=== PATIENT | female | born 2000 | race American Indian/Alaskan Native ===

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

== ENCOUNTER 2021-04-05 06:07 | Inpatient (IN) | payer OTHER ==
[~2021-04-05 06:07] MED LIST changes: +Docusate Sodium 100 MG Cap PO PRN; +Ibuprofen 800 MG Tab PO PRN; +Ketorolac 30 MG/ML SDV IVPUSH SCH; +Oxytocin/Normal Saline 30 UNIT/500 ML BAG IV SCH
[2021-04-05] MEDS: Lactated Ringers 1,000 ML IV SCH ×5 (06:25→18:24)
[2021-04-05] MEDS ORDERED: Oxytocin/Normal Saline 60 UNIT/1,000 ML BAG ONE (06:39)
[2021-04-05] MEDS ORDERED: Citric Acid/Sodium Citrate Solution 30 ML Cup PO ONE (07:08)
[2021-04-05] MEDS ORDERED: Citric Acid/Sodium Citrate Solution 30 ML Cup ONE (07:09)
[2021-04-05] MEDS ORDERED: Ketorolac 30 MG/ML SDV IVPUSH ONE (08:00)
[2021-04-05] MEDS ORDERED: Dexamethasone 4 MG/ML SDV IV ONE (08:00)
[2021-04-05] MEDS ORDERED: Lactated Ringers 1,000 ML IV ONE (08:00)
[2021-04-05] MEDS ORDERED: Morphine PF 1 MG/ML Amp ITHECAL ONE (08:00)
[2021-04-05] MEDS ORDERED: Ondansetron 4 MG/2 ML SDV IV ONE (08:00)
--- NOTE | 2021-04-05 08:11 | OBOUT ---
DATE: 04/05/2021 TIME: 6:20 to 6:39. REASONS FOR NONSTRESS TEST: 1. Intrauterine , 39 weeks by a 21-6/7-week ultrasound. 2. Previous x2, requests repeat low-transverse . 3. Rubella equivocal. 4. Impaired glucose tolerance. 5. GBS negative. 6. G3, P2-0-0-2. NONSTRESS TEST INTERPRETATION: During this time period, heart tone baseline is approximately 120 to 130 and at least two 15 x 15 beats per minute acceleration, making this strip reactive as well as reassuring. Tocometer reveals potential of 1 to 2 contractions, not felt by the patient. Blood pressure is 132/78, heart rate 79, and temperature 98.5. ASSESSMENT: 1. Nonstress test, reactive and reassuring. 2. Tocometer with contractions. PLAN: Please see H and P done through [employer]. For this, records were called for, reviewed as below, and supplemented by the patient's history and review of systems noted. Please see H and P to be scanned in through [employer]. Updates sticker has been applied. We will proceed to the OR as soon as crew is ready and available. [facility] /[id number]
--- NOTE | 2021-04-05 10:50 | OR ---
DATE: 04/05/2021 PREOPERATIVE DIAGNOSES: 1. Intrauterine at 39 weeks by 21 and 6/7 weeks ultrasound. 2. Previous x2, requests repeat low transverse . 3. Rubella equivocal. 4. Impaired glucose tolerance. 5. GBS negative. 6. G3, P2-0-0-2. POSTOPERATIVE DIAGNOSES: 1. Intrauterine at 39 weeks by 21 and 6/7 weeks ultrasound - delivered. 2. Previous x2, requests repeat low transverse . 3. Rubella equivocal. 4. Impaired glucose tolerance. 5. GBS negative. 6. G3, P2-0-0-2. PROCEDURES PERFORMED: Nonstress test followed by repeat low transverse C- section. PROGRAM LEAD: Keila Chávez MD ANESTHESIA: Spinal. ESTIMATED BLOOD LOSS: 250 mL. IV FLUIDS: 1000 mL of lactated Ringer's and 200 mL of Pitocin. URINE OUTPUT: 200 mL, clear yellow. START: 7:56. UTERINE INCISION: 7:59. DELIVERY: 8 o'clock. STOP: 8:16. FINDINGS: Female, score 8 and 9, weight pending. DESCRIPTION OF PROCEDURE IN DETAIL: After proper consent was obtained, the patient was brought to the operating room, where spinal anesthetic was administered. Rosas was placed under preoperative sterile conditions. The abdomen was prepped and draped in normal sterile fashion. The patient was placed in supine position with left lateral tilt. A skin incision was then made over lower abdomen in a transverse Pfannenstiel- type fashion over previous scar. This was carried down to the fascia and scored in the midline. Subcutaneous tissue was raked laterally bluntly and fascial incision was extended in a transverse fashion using curved Hughes's. Richardson clamps x2 were used to grasp the superior aspect of the fascia and rectus muscles were dissected from the fascia using sharp and blunt technique. In a similar fashion, Richardson clamps x2 were used to grasp the inferior portion of the incision and rectus pyramidalis muscles were dissected from the fascia using sharp and blunt technique. Rectus muscles were in midline with blunt technique. Abdominal cavity was entered in blunt technique, and incision was extended superiorly and inferiorly with blunt technique. Bro O large retractor was then introduced and used. Vesicouterine peritoneum was identified, incised in a transverse fashion with Metzenbaum scissors, and no window was noted but thin lower uterine segment was noted and the uterus was entered while making the bladder flap. Clear fluid returned and uterus was entered this way and uterine incision was then extended in a transverse fashion using blunt technique. vertex was then delivered through the incision followed by rest of the without difficulty. Mouth and nares were suctioned. Cord was doubly clamped and cut. The infant was brought to team. Then, approximately 10 mL of cord blood was obtained for labs. Placenta was then delivered with gentle cord traction and fundal massage. Uterine cavity was then cleared of all blood clots and debris with lap sponge. Escobar clamps were used to grasp the uterine incision. It was closed in a running locked fashion, tied at lateral margins with 1-0 Vicryl. Left of midline, there was minimal bleeding. Two heobtl-ls-qqgnw stitch was applied and hemostasis was reassured. First inspection of the uterine incision revealed hemostasis. Bro O retractor was then removed and paracolic gutters were then cleared of all blood clots and debris with lap sponge. Anterior cul-de-sac was irrigated copiously with all blood clots and debris removed. Second and final inspection of uterine incision and anterior cul-de-sac revealed hemostasis. Rectus muscles were then reapproximated in midline with [id number] stitch using 1-0 Vicryl. Subfascial tissues were found to be hemostatic. Fascia was closed in a running fashion and tied at lateral margins with 0 looped PDS. Subcutaneous tissue was irrigated copiously, hemostasis was reassured. Skin was reapproximated with medium jaylene. Sterile Aquacel dressing applied. Uterine fundus was firm and massaged at the conclusion of the case, -2 below umbilicus. No immediate complications were noted. Sponge, lap, and needle counts were correct. The patient received 2 g of Ancef preoperatively, Pitocin per protocol, and received Toradol at the conclusion of the case for pain control. Mother and infant are currently stable at the time of dictation. [facility] /[id number]
[2021-04-05] MEDS: Simethicone 80 MG Tab.Chew PO SCH ×3 (11:40→23:43)
[2021-04-05] MEDS: Prenatal Multivitamin with Calcium/Folic Acid/Iron Tab PO SCH (11:40)
[2021-04-05] MEDS: Ferrous Sulfate 325 MG Tab PO SCH (11:41)
[2021-04-05] MEDS ORDERED: Oxytocin/Normal Saline 30 UNIT/500 ML BAG IV ONE (14:33)
[2021-04-05] MEDS: Ketorolac 30 MG/ML SDV IVPUSH SCH ×2 (14:56→20:35)
[2021-04-05] MEDS ORDERED: Acetaminophen/oxyCODONE 325-5 MG Tab ONE (16:53)
[2021-04-05] MEDS ORDERED: Acetaminophen 325 MG Tab PO PRN (21:34)
[2021-04-05] MEDS ORDERED: Acetaminophen/oxyCODONE 325-5 MG Tab PO PRN ×2 (21:35)
[2021-04-05] MEDS ORDERED: diphenhydrAMINE 50 MG/ML SDV IVPUSH PRN (21:36)
[2021-04-05] MEDS ORDERED: Ondansetron 4 MG/2 ML SDV IVPUSH PRN (21:38)
[2021-04-05] MEDS ORDERED: Ketorolac 30 MG/ML SDV IVPUSH SCH ×2 (21:45→22:30)
[2021-04-05] MEDS ORDERED: Simethicone 80 MG Tab.Chew PO ONE (23:13)
[2021-04-05] MEDS: Acetaminophen/oxyCODONE 325-5 MG Tab PO PRN (23:25)
[2021-04-06] MEDS ORDERED: Ketorolac 30 MG/ML SDV IVPUSH ONE (02:30)
[2021-04-06] MEDS: Acetaminophen/oxyCODONE 325-5 MG Tab PO PRN ×5 (05:47→23:16)
[2021-04-06] MEDS: Simethicone 80 MG Tab.Chew PO SCH ×4 (09:59→23:15)
[2021-04-06] MEDS: Prenatal Multivitamin with Calcium/Folic Acid/Iron Tab PO SCH (09:59)
[2021-04-06] MEDS: Ibuprofen 800 MG Tab PO PRN ×2 (10:15→19:13)
--- NOTE | 2021-04-06 10:57 | PN ---
DATE: 04/06/2021 Postop day #1, status post repeat low transverse . SUBJECTIVE: The patient is tolerating p.o., is ambulating, urinating, passing flatus. States pain is controlled. OBJECTIVE: Vital Signs: Temperature 98.4, heart rate 60, blood pressure 114/64, respiratory rate 17. Lungs: Clear to auscultation bilaterally. Heart: S1, S2. Regular rate and rhythm. Abdomen: Firm uterus. -1 below umbilicus. Aquacel dressing dry and intact. Extremities: No peripheral edema. No calf pain. LABORATORY DATA: Pending is a CBC. ASSESSMENT: Postop day #1, status post repeat low transverse . PLAN: CBC today. We will continue to follow clinically and closely. The patient mentioned possibly going home tomorrow. We will follow closely at this point in time and this was discussed. [facility] /[id number]
[2021-04-06] MEDS ORDERED: Prenatal Multivitamin with Calcium/Folic Acid/Iron Tab PO ONE (14:30)
[2021-04-06] MEDS ORDERED: Ferrous Sulfate 325 MG Tab PO ONE (14:30)
[2021-04-06] MEDS: Docusate Sodium 100 MG Cap PO PRN ×2 (14:39→23:16)
[2021-04-06] MEDS: Ferrous Sulfate 325 MG Tab PO SCH (14:41)
[2021-04-07] MEDS: Ibuprofen 800 MG Tab PO PRN ×2 (03:16→11:11)
[2021-04-07] MEDS: Acetaminophen/oxyCODONE 325-5 MG Tab PO PRN ×2 (03:17→07:52)
[2021-04-07] MEDS: Ferrous Sulfate 325 MG Tab PO SCH (07:51)
[2021-04-07] MEDS: Simethicone 80 MG Tab.Chew PO SCH ×4 (07:51→13:49)
[2021-04-07] MEDS: Prenatal Multivitamin with Calcium/Folic Acid/Iron Tab PO SCH ×2 (07:52→08:02)
[2021-04-07] MEDS: Docusate Sodium 100 MG Cap PO PRN (07:52)
--- NOTE | 2021-04-07 10:15 | DISCH ---
ADMIT DIAGNOSES: 1. Intrauterine at 39 weeks by 21-6/7 weeks ultrasound. 2. Previous section x2, requests repeat low transverse section. 3. Rubella equivocal. 4. Impaired glucose tolerance. 5. Group B Streptococcus negative. 6. G3, P2-0-0-2. DISCHARGE DIAGNOSES: 1. Intrauterine at 39 weeks by 21-6/7 weeks ultrasound - delivered. 2. Previous section x2, requests repeat low transverse section. 3. Rubella equivocal. 4. Impaired glucose tolerance. 5. Group B Streptococcus negative. 6. G3, P2-0-0-2. PROCEDURE PERFORMED: Nonstress test followed by repeat low transverse section per Dr. Zurita. HISTORY OF PRESENT ILLNESS: Please see H and P. SUMMARY OF HOSPITAL COURSE: The patient was admitted on the above date with above diagnosis, underwent repeat low transverse under spinal anesthesia with an EBL 250 mL yielding a female with scores of 8 and 9, weighing 6 pounds 15 ounces (3150 g). Please see delivery note for further details. On postop day 1, please see progress note. On postop day #2, date of discharge, the patient was tolerating p.o., was ambulating, urinating, passing flatus, and requesting discharge. PHYSICAL EXAMINATION: Vital Signs: Last set of vitals, temperature 97.9, heart rate 77, blood pressure 118/64, and respiratory rate 16. Lungs: Clear to auscultation bilaterally. Heart: S1, S2. Regular rate and rhythm. Abdomen: Firm, uterus -2 below umbilicus. Aquacel dressing dry and intact. Extremities: No peripheral edema. No calf pain. LABORATORY DATA: Yesterday, postop day #1, hemoglobin was 9.8 compared to predelivery hemoglobin of 11.2. CONDITION ON DISCHARGE COMPARED TO CONDITION ON ADMISSION: Improved. DISCHARGE INSTRUCTIONS: Diet as tolerated. Activity: No lifting more than 20 pounds. No sit-ups or straining. Pelvic rest for the next 6 weeks with immediate return to fertility discussed with patient. Reasons to return or go to the emergency room discussed with patient in detail including but not limited to temperature greater than 100.4, foul-smelling discharge, red or tender breasts, or increased vaginal bleeding or increasing pain, drainage, or redness around the incision. DISCHARGE MEDICATIONS: Jtyd-txj-isoonse Tylenol and ibuprofen for pain; Percocet 5/325 one to 2 q.6 hours p.r.n. #20, no refills given with #6 to be given today as Pharmacy is closed; Colace 100 mg b.i.d. p.r.n. #60, no refills; and iron sulfate 325 b.i.d. x6 weeks, no refills. FOLLOWUP: On Thursday04/09/2021 for staple removal with her baby and I discussed with her in the interim reasons to return or go to the emergency in regard to her baby as well. Please see discharge paper work for further details. [facility] /[id number]
[2021-04-07] MEDS ORDERED: Acetaminophen/oxyCODONE 325-5 MG Tab PO ONE (11:59)
== END 2021-04-07 12:00 | disposition home or self-care (01) | DRG 788 ==
LOC: DL.MS 06:07 → PREOBSVTOIN 21:36
PROVIDERS: ADMIT Family Medicine; ATTEND Family Medicine
PROC: 10D00Z1 Extraction of Products of Conception, Low, Open Approach (ICD-10-PCS; principal; 2021-04-05)
DX: O34.211 Maternal care for low transverse scar from previous cesarean delivery (principal); Z37.0 Single live birth; O99.814 Abnormal glucose complicating childbirth; Z20.822 Contact with and (suspected) exposure to COVID-19; Z3A.39 39 weeks gestation of pregnancy; Z28.82 Immunization not carried out because of caregiver refusal
CPT/HCPCS: 01961; 36415; 85027; 86850; 86900; 86901; A9270-GY; J0690; J1100; J1885; J2274; J2405; J2590; J7120; U0002

== ENCOUNTER 2024-09-25 03:43 | Emergency (ER) | payer OTHER, MEDICAID | END 2024-09-25 07:00 | disposition home or self-care (01) | LOC: DL.ED 03:43 | DX: S02.2XXA Fracture of nasal bones, initial encounter for closed fracture (principal); S01.21XA Laceration without foreign body of nose, initial encounter; F17.290 Nicotine dependence, other tobacco product, uncomplicated; Z79.899 Other long term (current) drug therapy; Y04.8XXA Assault by other bodily force, initial encounter | CPT/HCPCS: 70486; 99283 ==